=== PATIENT | male | born 1960 | race Caucasian/White ===

== ENCOUNTER 2019-05-27 18:43 | Emergency (ER) | payer OTHER ==
[~2019-05-27] VITALS: Ht 170.2 cm; Wt 68.0 kg
[2019-05-27 18:43] VITALS: BP_SYST 154
[~2019-05-27 18:43] MED LIST: FOLI-43 PO; LIB25 PO; PHEN100C4 PO; PRO40 PO; THIA100T13 PO
--- NOTE | 2019-05-27 19:43 | NUR ---
BROUGHT IN BY AMBULANCE FOR DIZZINESS,S/P FALL. DENIES ANY HEAD TRAUMA,K.O. COMPLAINS OF GENERALIZED BODY PAIN WHICH IS CHRONIC. ER-MD AT BEDSIDE TO EVALUATE PT.
--- NOTE | 2019-05-27 19:44 | NUR ---
ER at bedside examining patient.
--- NOTE | 2019-05-27 19:44 | NUR ---
Placed in room 2 . Placed on potline monitor, blood pressure machine and pulse oximeter. To gown for exam. Side rails up. Report given to TASNEEM DENIS.
--- NOTE | 2019-05-27 20:28 | NUR ---
BLOOD DRAWN BY LAB.[employer]. WENT FOR CT SCAN OF HEAD VIA [facility].
--- NOTE | 2019-05-27 20:42 | NUR ---
BACK FROM RADIOLOGY DEPARTMENT.
[2019-05-27 20:46] LABS: BASOPHILS # (AUTO) 0.1 K/uL (0.0-0.2); BASOPHILS % (AUTO) 1.6 % (0.0-2.0); EOSINOPHILS # (AUTO) 0.5 K/uL (0.0-0.4); EOSINOPHILS % (AUTO) 6.8 % (0.0-4.0); HEMATOCRIT 35.5 % (36-54); HEMOGLOBIN 12.3 g/dL (14.0-18.0); LYMPHOCYTES # (AUTO) 2.1 K/uL (1.0-5.5); LYMPHOCYTES % (AUTO) 29.3 % (20.5-51.5); MEAN CORPUSCULAR HEMOGLOBIN 37 pg (27-31); MEAN CORPUSCULAR HGB CONC 35 % (32-36); MEAN CORPUSCULAR VOLUME 106 fL (79.0-98.0); MONOCYTES # (AUTO) 0.6 K/uL (0.0-1.0); MONOCYTES % (AUTO) 8.7 % (1.7-9.3); NEUTROPHILS # (AUTO) 3.8 K/uL (1.8-7.7); NEUTROPHILS % (AUTO) 53.6 % (40.0-70.0); PLATELET COUNT (AUTO) 245 K/uL (130-430); RED BLOOD CELL COUNT(AUTO) 3.36 MIL/uL (4.2-6.2); RED CELL DISTRIBUTION WIDTH 13.1 % (9.0-15.0)
--- NOTE | 2019-05-27 20:48 | NUR ---
URINE SPECIMEN COLLECTED AND SENT TO THE LAB.
--- NOTE | 2019-05-27 20:52 | NUR ---
12 LEAD EKG DONE BY ER BALLISTICS EXPERT [employer].
[2019-05-27 20:56] LABS: ANION GAP 9 (5-15); CALCIUM 8.2 mg/dL (8.4-11.0); CHLORIDE 91 mmol/L (98-107); CREATININE 0.93 mg/dL (0.55-1.30); GLUCOSE 73 mg/dL (70-99); POTASSIUM 4.8 mmol/L (3.5-5.1); SODIUM SERUM 125 mmol/L (136-145); UREA NITROGEN, BLOOD 13 mg/dL (8-21)
[2019-05-27 20:57] LABS: GFR AFRICAN AMERICAN 107 mL/min (>90)
[2019-05-27 21:06] LABS: BILIRUBIN,URINE NEGATIVE (NEGATIVE); BLOOD, URINE NEGATIVE (NEGATIVE); CLARITY/URINE CLEAR (CLEAR); COLOR,URINE YELLOW (YELLOW); GLUCOSE,URINE TRACE (NEGATIVE); KETONES,URINE NEGATIVE (NEGATIVE); LEUKOCYTE ESTERASE ,URINE NEGATIVE (NEGATIVE); NITRITE, URINE NEGATIVE (NEGATIVE); PH,URINE 5.5 (5.0-8.0); PROTEIN URINE NEGATIVE (NEGATIVE); UROBILINOGEN,URINE 0.2 (0.2-1.0)
[2019-05-27 21:09] LABS: ALANINE AMINOTRANSFERASE 44 U/L (12-78); ALBUMIN 3.3 g/dL (3.4-4.8); ALCOHOL, BLOOD 255 mg/dL (<10); ASPARTATE AMINOTRANSFERASE 61 U/L (10-37); TOTAL BILIRUBIN 0.3 mg/dL (0.0-1.0)
[2019-05-27 21:18] LABS: BARBITURATE, URINE POSITIVE (NEG <=200); BENZODIAZEPINE, URINE NEGATIVE (NEG <=150); CANNABINOID, URINE NEGATIVE (NEG <=50); COCAINE, URINE NEGATIVE (NEG <=150); METHAMPHETAMINES SCREEN,URINE NEGATIVE (NEG <=500); OPIATE, URINE NEGATIVE (NEG <=100); PHENCYCLIDINE SCREEN,URINE NEGATIVE (NEG <=25); UR TRICYCLIC ANTIDEPRESSANTS NEGATIVE (NEG <=300); URINE AMPHETAMINE NEGATIVE (NEG <=500); URINE METHADONE NEGATIVE (NEG <=200); URINE OXYCODONE SCREEN NEGATIVE (NEG <=100); URINE PROPOXYPHENE SCREEN NEGATIVE (NEG <=300)
[2019-05-27] MEDS ORDERED: NACL 0.9% 1,000 ML IV ONE (21:45)
--- NOTE | 2019-05-27 22:45 | NUR ---
GAUGE 18 IV LINE ESTABLISHED TO THE RIGHT FOREARM. NORMAL SALINE 1 LITER BOLUS GIVEN ORDERED.
--- NOTE | 2019-05-28 | NUR ---
ASLEEP, NOT IN ANY KIND OF DISTRESS. NO PAIN OR DISCOMFORTY NOTED. VS REMAIN STABLE. WILL CONTINUE TO MONITOR.
--- NOTE | 2019-05-28 02:00 | NUR ---
ASLEEP, NOT IN ANY KIND OF DISTRESS. NO PAIN OR DISCOMFORT NOTED. VS REMAIN STABLE.
[2019-05-28 02:38] LABS: CALCIUM 8.1 mg/dL (8.4-11.0); CREATININE 0.86 mg/dL (0.55-1.30); POTASSIUM 4.4 mmol/L (3.5-5.1)
[2019-05-28] MEDS ORDERED: NACL 0.9% 1,000 ML IV ONE (03:30)
--- NOTE | 2019-05-28 03:40 | NUR ---
REPEAT SERUM [id number]. ANOTHER LITER OF NS BOLUS GIVEN ORDERED. PT. REMAINS STABLE AND PAIN FREE.
--- NOTE | 2019-05-28 05:15 | NUR ---
ASLEEP, NO SIGNIFICANT CHANGE. PT.REMAINS STABLE AND PAIN FREE.
[2019-05-28] MEDS ORDERED: SODIUM CHLORIDE 500 MG TABLET PO ONE (06:45)
--- NOTE | 2019-05-28 06:55 | NUR ---
SODIUM CHLORIDE 500 MG TABLET ORDERED BUT NOT AVAILABLE [facility]IA [email or web address] NOT OPEN YET. ER-MD MADE AWARE AND HE SAID OK TO DISCHARGE PT.
--- NOTE | 2019-05-28 07:03 | NUR ---
DISCHARGED STABLE. VERBAL AND WRITTEN AFTERCARE INSTRUCTIONS GIVEN. VERBALIZED UNDERSTANDING. SALINE LOCK DISCONTINUE AND IV CATHETER INTACT. LEFT AMBULATORY WITH STABLE GAIT.
[2019-05-28 07:08] VITALS: BP_SYST 120
== END 2019-05-28 07:08 | disposition home or self-care (01) ==
LOC: SED 18:43
DX: E87.1 Hypo-osmolality and hyponatremia (principal); F10.129 Alcohol abuse with intoxication, unspecified; F17.200 Nicotine dependence, unspecified, uncomplicated; I10 Essential (primary) hypertension; R42 Dizziness and giddiness; Z85.51 Personal history of malignant neoplasm of bladder; Z86.73 Personal history of transient ischemic attack (TIA), and cerebral infarction without residual deficits; Z79.899 Other long term (current) drug therapy; W18.39XA Other fall on same level, initial encounter; Y93.89 Activity, other specified; Y92.89 Other specified places as the place of occurrence of the external cause; Y99.8 Other external cause status; Y90.8 Blood alcohol level of 240 mg/100 ml or more
CPT/HCPCS: 36415; 70450; 72170; 80048; 80053; 80307; 81003; 84295; 84484; 85025; 93005; 96360; 96361; 99285; G0482; J7030 ×2

== ENCOUNTER 2020-12-09 12:06 | Emergency (ER) | payer OTHER, SELFPAY ==
[~2020-12-09] VITALS: Ht 170.2 cm; Wt 77.1 kg
[2020-12-09 12:10] VITALS: BP_SYST 140
--- NOTE | 2020-12-09 12:10 | NUR ---
Patient to ER bed 1 to gown for evaluation. Side rails up.
--- NOTE | 2020-12-09 12:12 | NUR ---
ER at bedside examining patient.
--- NOTE | 2020-12-09 12:20 | NUR ---
pt bib via bls after tripping and sustaining a fall at a parking lot. Pt has a lac to his forehead, nataliya knees, and right UE. Pt denies KO. Per EMS pt had a 32 oz beer prior to the fall. pt is currently AAOx3. Speaking in complete sentences.
[2020-12-09 12:48] LABS: BASOPHILS # (AUTO) 0.1 K/uL (0.0-0.2); BASOPHILS % (AUTO) 1.6 % (0.0-2.0); EOSINOPHILS # (AUTO) 0.7 K/uL (0.0-0.4); EOSINOPHILS % (AUTO) 7.8 % (0.0-4.0); HEMATOCRIT 31.1 % (36-54); HEMOGLOBIN 10.7 g/dL (14.0-18.0); LYMPHOCYTES % (AUTO) 22.1 % (20.5-51.5); MEAN CORPUSCULAR HEMOGLOBIN 36 pg (27-31); MEAN CORPUSCULAR HGB CONC 34 % (32-36); MEAN CORPUSCULAR VOLUME 104 fL (79.0-98.0); MONOCYTES # (AUTO) 1.1 K/uL (0.0-1.0); NEUTROPHILS # (AUTO) 5.2 K/uL (1.8-7.7); NEUTROPHILS % (AUTO) 56.5 % (40.0-70.0); PLATELET COUNT (AUTO) 313 K/uL (130-430); RED CELL DISTRIBUTION WIDTH 13.1 % (9.0-15.0); WHITE BLOOD COUNT (AUTO) 9.2 K/uL (4.8-10.8)
[2020-12-09 12:59] LABS: CALCIUM 8.2 mg/dL (8.4-11.0); CREATININE 0.92 mg/dL (0.55-1.30); POTASSIUM 4.5 mmol/L (3.5-5.1)
[2020-12-09 13:05] LABS: ALBUMIN 2.9 g/dL (3.4-4.8); TOTAL BILIRUBIN 0.1 mg/dL (0.0-1.0)
--- NOTE | 2020-12-09 13:17 | NUR ---
# 22 gauge angiocath placed to LAC. Use of asceptic technique. Opsite placed over site. Blood return noted. Blood for lab drawn from site. Flushed with 10 cc of normal saline. No evidence of infiltration noted. Patient tolerated well.
--- NOTE | 2020-12-09 13:42 | NUR ---
ua collected and sent to the lab
[2020-12-09] MEDS ORDERED: NACL 0.9% 1,000 ML IV ONE (13:45)
[2020-12-09] MEDS ORDERED: ACET-2634 PO (13:55)
[2020-12-09 14:00] LABS: BILIRUBIN,URINE NEGATIVE (NEGATIVE); BLOOD, URINE NEGATIVE (NEGATIVE); CLARITY/URINE CLEAR (CLEAR); COLOR,URINE YELLOW (YELLOW); GLUCOSE,URINE NEGATIVE (NEGATIVE); KETONES,URINE NEGATIVE (NEGATIVE); LEUKOCYTE ESTERASE ,URINE NEGATIVE (NEGATIVE); NITRITE, URINE NEGATIVE (NEGATIVE); PROTEIN URINE NEGATIVE (NEGATIVE); UROBILINOGEN,URINE 0.2 (0.2-1.0)
[2020-12-09 14:16] LABS: BARBITURATE, URINE POSITIVE (NEG <=200); BENZODIAZEPINE, URINE NEGATIVE (NEG <=150); CANNABINOID, URINE POSITIVE (NEG <=50); COCAINE, URINE NEGATIVE (NEG <=150); METHAMPHETAMINES SCREEN,URINE NEGATIVE (NEG <=500); OPIATE, URINE NEGATIVE (NEG <=100); PHENCYCLIDINE SCREEN,URINE NEGATIVE (NEG <=25); UR TRICYCLIC ANTIDEPRESSANTS NEGATIVE (NEG <=300); URINE AMPHETAMINE NEGATIVE (NEG <=500); URINE METHADONE NEGATIVE (NEG <=200); URINE OXYCODONE SCREEN NEGATIVE (NEG <=100); URINE PROPOXYPHENE SCREEN NEGATIVE (NEG <=300)
[2020-12-09] MEDS ORDERED: MORPHINE 4 MG INJ. 4 MG/ML VIAL IVP ONE (14:30)
--- NOTE | 2020-12-09 15:30 | NUR ---
pt removed his IV and said that he is walking home. Pt was advised that it is important that he remains her until his IV fluids finish and that someone pick him up. Pt began to argue and said, "you can not hold me against my will and I am walking home"
[2020-12-09 15:32] VITALS: BP_SYST 140
--- NOTE | 2020-12-09 15:33 | NUR ---
Patient given written and verbal discharge instructions and verbalizes understanding. ER MD discussed with patient the results and treatment provided. Patient in stable condition. ID arm band removed. IV catheter removed intact and dressing applied, no active bleeding. Rx of tylenol xr given. Patient educated on pain management and to follow up with PMD. Pain Scale 0/10. Opportunity for questions provided and answered. Medication side effect fact sheet provided.
== END 2020-12-09 15:32 | disposition home or self-care (01) ==
LOC: SED 12:06
DX: S09.90XA Unspecified injury of head, initial encounter (principal); S80.211A Abrasion, right knee, initial encounter; S80.212A Abrasion, left knee, initial encounter; F10.129 Alcohol abuse with intoxication, unspecified; I10 Essential (primary) hypertension; I25.2 Old myocardial infarction; Z79.899 Other long term (current) drug therapy; Y90.8 Blood alcohol level of 240 mg/100 ml or more; W18.39XA Other fall on same level, initial encounter; Y93.89 Activity, other specified; Y92.89 Other specified places as the place of occurrence of the external cause; Y99.8 Other external cause status
CPT/HCPCS: 36415; 70450; 71250; 72125; 76376; 80053; 80307; 81003; 85025; 96361; 96374; 99285; G0482; J2270; J7030

== ENCOUNTER 2022-08-03 20:26 | Emergency (ER) | payer MEDICAID, OTHER ==
[~2022-08-03] VITALS: Ht 170.2 cm; Wt 70.8 kg
[~2022-08-03 20:26] MED LIST changes: +ACET-2634 PO
[2022-08-03 20:38] VITALS: BP_SYST 154
[2022-08-03] MEDS ORDERED: LORazepam 2 MG/ML VIAL IVP ONE (21:00)
[2022-08-03] MEDS ORDERED: ONDANSETRON HCL 4 MG/2 ML VIAL IVP ONE (21:00)
[2022-08-03 22:10] LABS: BASOPHILS # (AUTO) 0.1 K/uL (0.0-0.2); BASOPHILS % (AUTO) 0.9 % (0.0-2.0); EOSINOPHILS # (AUTO) 0.8 K/uL (0.0-0.4); EOSINOPHILS % (AUTO) 9.9 % (0.0-4.0); HEMATOCRIT 36.2 % (36-54); HEMOGLOBIN 12.4 g/dL (14.0-18.0); LYMPHOCYTES # (AUTO) 2.3 K/uL (1.0-5.5); LYMPHOCYTES % (AUTO) 26.8 % (20.5-51.5); MEAN CORPUSCULAR HEMOGLOBIN 35 pg (27-31); MEAN CORPUSCULAR HGB CONC 34 % (32-36); MEAN CORPUSCULAR VOLUME 103 fL (79.0-98.0); MONOCYTES # (AUTO) 0.9 K/uL (0.0-1.0); MONOCYTES % (AUTO) 10.5 % (1.7-9.3); NEUTROPHILS # (AUTO) 4.4 K/uL (1.8-7.7); NEUTROPHILS % (AUTO) 51.9 % (40.0-70.0); PLATELET COUNT (AUTO) 268 K/uL (130-430); RED BLOOD CELL COUNT(AUTO) 3.53 MIL/uL (4.2-6.2); RED CELL DISTRIBUTION WIDTH 13.2 % (9.0-15.0); WHITE BLOOD COUNT (AUTO) 8.5 K/uL (4.8-10.8)
[2022-08-03 22:20] LABS: CALCIUM 7.9 mg/dL (8.4-11.0); CREATININE 0.95 mg/dL (0.55-1.30)
[2022-08-03 22:24] LABS: ALBUMIN 2.7 g/dL (3.4-4.8); PHENYTOIN (DILANTIN) 8.9 ug/mL (10.0-20.0); TOTAL BILIRUBIN 0.2 mg/dL (0.0-1.0)
[2022-08-03] MEDS ORDERED: THIAMINE HCL 100 MG/ML VIAL ONE (23:12)
[2022-08-03] MEDS ORDERED: MAGNESIUM SULFATE 1 GM/2 ML VIAL ONE (23:12)
[2022-08-03] MEDS ORDERED: FOLIC ACID 5 MG/ML VIAL IV ONE (23:12)
[2022-08-03] MEDS ORDERED: PHENYTOIN SODIUM INJ 500 MG in NS 100 ML IV ONE (23:15)
[2022-08-03] MEDS ORDERED: MVI 10 ML VIAL IV ONE (23:19)
[2022-08-03] MEDS: FOLIC ACID 1 MG, THIAMINE HCL 100 MG, MAGNESIUM SULFATE 1 GM, MVI 10 ML in NACL 0.9% 1,... IV ONE (23:51)
[2022-08-04] MEDS ORDERED: PHENYTOIN SODIUM 100 MG/2 ML VIAL (DILANTIN) ONE ×2 (00:09→00:10)
[2022-08-04] MEDS: FOLIC ACID 1 MG, THIAMINE HCL 100 MG, MAGNESIUM SULFATE 1 GM, MVI 10 ML in NACL 0.9% 1,... IV ONE (00:42)
[2022-08-04] MEDS ORDERED: AMLO5TAB92 PO (00:49)
[2022-08-04] MEDS ORDERED: HYDR-3698 PO (00:49)
[2022-08-04] MEDS ORDERED: LIP20 PO (00:49)
[2022-08-04] MEDS: POTASSIUM CHLORIDE 20 MEQ TAB.PRT.SR PO ONE ×2 (01:07→01:13)
[2022-08-04 02:38] VITALS: BP_SYST 121
== END 2022-08-04 02:38 | disposition home or self-care (01) ==
LOC: SED 20:26
DX: G40.909 Epilepsy, unspecified, not intractable, without status epilepticus (principal); R32 Unspecified urinary incontinence; R89.2 Abnormal level of other drugs, medicaments and biological substances in specimens from other organs, systems and tissues; I10 Essential (primary) hypertension; Z79.899 Other long term (current) drug therapy
CPT/HCPCS: 99285; 70450; 80053; 80185; 83690; 83735; 85025; 36415; 93005; 76376; 96365; 96375; J3490; J3475; J3411; J1165

== ENCOUNTER 2022-11-30 15:11 | Emergency (ER) | payer MEDICAID ==
[~2022-11-30] VITALS: Ht 170.2 cm; Wt 63.5 kg
[~2022-11-30 15:11] MED LIST changes: -ACET-2634 PO; +AMLO5TAB92 PO; -FOLI-43 PO; +HYDR-3698 PO; -LIB25 PO; +LIP20 PO; -PRO40 PO; -THIA100T13 PO
[2022-11-30 15:24] VITALS: BP_SYST 123; PULSE 74; RESP 18; TEMP 97.5
[2022-11-30] MEDS ORDERED: ACET-2634 PO (17:20)
== END 2022-11-30 17:40 | disposition home or self-care (01) ==
LOC: SED 15:11
DX: S60.032A Contusion of left middle finger without damage to nail, initial encounter (principal); S60.052A Contusion of left little finger without damage to nail, initial encounter; I10 Essential (primary) hypertension; Z85.51 Personal history of malignant neoplasm of bladder; Z79.899 Other long term (current) drug therapy; W19.XXXA Unspecified fall, initial encounter; Y93.89 Activity, other specified; Y92.89 Other specified places as the place of occurrence of the external cause; Y99.8 Other external cause status
CPT/HCPCS: 73140-TC; 99284

== ENCOUNTER 2023-07-04 20:26 | Emergency (ER) | payer MEDICAID ==
[~2023-07-04] VITALS: Ht 170.2 cm; Wt 72.6 kg
[~2023-07-04 20:26] MED LIST changes: +ACET-2634 PO
[2023-07-04 20:34] VITALS: BP_SYST 164; PULSE 90; RESP 16; TEMP 97.5; O2SAT 96
[2023-07-04 23:23] LABS: BASOPHILS # (AUTO) 0.1 K/uL (0.0-0.2); BASOPHILS % (AUTO) 0.7 % (0.0-2.0); EOSINOPHILS # (AUTO) 0.7 K/uL (0.0-0.4); EOSINOPHILS % (AUTO) 6.6 % (0.0-4.0); HEMATOCRIT 31.3 % (36-54); HEMOGLOBIN 10.6 g/dL (14.0-18.0); LYMPHOCYTES % (AUTO) 20.1 % (20.5-51.5); MEAN CORPUSCULAR HEMOGLOBIN 34 pg (27-31); MEAN CORPUSCULAR HGB CONC 34 % (32-36); MEAN CORPUSCULAR VOLUME 101 fL (79.0-98.0); MONOCYTES % (AUTO) 9.7 % (1.7-9.3); NEUTROPHILS # (AUTO) 6.4 K/uL (1.8-7.7); NEUTROPHILS % (AUTO) 62.9 % (40.0-70.0); PLATELET COUNT (AUTO) 224 K/uL (130-430); RED CELL DISTRIBUTION WIDTH 13.6 % (9.0-15.0); WHITE BLOOD COUNT (AUTO) 10.2 K/uL (4.8-10.8)
[2023-07-04] MEDS: NACL 0.9% 1,000 ML IV ONE (23:26)
[2023-07-04 23:38] LABS: ALBUMIN 2.6 g/dL (3.4-4.8); BILIRUBIN,DIRECT 0.2 mg/dL (0.0-0.3); CALCIUM 8.4 mg/dL (8.4-11.0); CREATININE 1.03 mg/dL (0.55-1.30); TOTAL BILIRUBIN 0.4 mg/dL (0.0-1.0); TOTAL PROTEIN, SERUM 6.4 g/dL (6.4-8.3)
[2023-07-05 03:17] VITALS: RESP 16; TEMP 97.5
[2023-07-05 05:30] VITALS: BP_SYST 124; PULSE 85; O2SAT 97
== END 2023-07-05 05:32 | disposition home or self-care (01) ==
LOC: SED 20:26
DX: S80.812A Abrasion, left lower leg, initial encounter (principal); S80.811A Abrasion, right lower leg, initial encounter; R53.1 Weakness; F10.129 Alcohol abuse with intoxication, unspecified; I10 Essential (primary) hypertension; Z79.899 Other long term (current) drug therapy; W18.39XA Other fall on same level, initial encounter; Y93.89 Activity, other specified; Y92.89 Other specified places as the place of occurrence of the external cause; Y99.8 Other external cause status; Y90.8 Blood alcohol level of 240 mg/100 ml or more
CPT/HCPCS: 99285; 96360; 80076; 80048; 85025; 36415; G0482; J7030